=== PATIENT | male | born 1950 | race Caucasian/White ===

== ENCOUNTER 2016-05-26 15:06 | Emergency (ER) | payer OTHER, BC ==
[~2016-05-26] VITALS: Ht 177.8 cm; Wt 75.3 kg
--- NOTE | 2016-05-26 15:07 | NUR ---
Patient to ER bed 6 to gown for evaluation. Side rails up. Report given to Jordan RO.
[2016-05-26 15:08] VITALS: BP 136/69; PULSE 83; RESP 16; TEMP 97.2; O2SAT 96
--- NOTE | 2016-05-26 15:12 | NUR ---
ER MD Rao at bedside evaluating the patient
[2016-05-26] MEDS ORDERED: LIDOCAINE 1% 10 MG/ML, 20 ML MDV INJ ONE (15:15)
[2016-05-26] MEDS ORDERED: DIPH-TET-PERTUS Vaccine 0.5 ML VIAL (ADACEL) I.M. ONE (15:15)
--- NOTE | 2016-05-26 15:15 | NUR ---
Pt bib family c/o LAC to back of head s/p mech fal w/o syncope. pt h/o parkinson's which appears moderate. pt unable to sit still, pt shuffling from side to side.
--- NOTE | 2016-05-26 15:30 | NUR ---
pt to receive medication to aid w/procedure.
[2016-05-26] MEDS ORDERED: BACITRACIN 1 GM OINT TP ONE (15:45)
[2016-05-26] MEDS ORDERED: LORazepam 1 MG TABLET PO ONE (15:45)
--- NOTE | 2016-05-26 15:50 | NUR ---
Patient has a 5 cm laceration to posterior head. Renetta MOLDED GRID AND PARTS INSPECTOR applied lelia using sterile technique. Edges well approximated. Site cleansed with NS. Open to air. No bleeding noted. Pt tolerated well.
--- NOTE | 2016-05-26 16:04 | NUR ---
Patient given written and verbal discharge instructions and verbalizes understanding. ER MD discussed with patient the results and treatment provided. Given copies of tests performed in ER. Patient in stable condition. ID arm band removed. Patient educated on wound care and to follow up with PMD. Pain Scale 0/10. Opportunity for questions provided and answered.
== END 2016-05-26 16:05 | disposition home or self-care (01) ==
LOC: SED 15:06
DX: S01.01XA Laceration without foreign body of scalp, initial encounter (principal); G20 Parkinson's disease; E11.9 Type 2 diabetes mellitus without complications; Z88.8 Allergy status to other drugs, medicaments and biological substances; Z86.73 Personal history of transient ischemic attack (TIA), and cerebral infarction without residual deficits; W22.8XXA Striking against or struck by other objects, initial encounter; Y93.89 Activity, other specified; Y99.8 Other external cause status; Y92.89 Other specified places as the place of occurrence of the external cause
CPT/HCPCS: 12002; 90471; 90715; 99283; J2001

== ENCOUNTER 2016-05-28 13:30 | Emergency (ER) | payer OTHER, BC ==
[~2016-05-28] VITALS: Ht 177.8 cm; Wt 75.3 kg
[2016-05-28 13:38] VITALS: BP 108/55; PULSE 78; RESP 16; TEMP 97.2; O2SAT 97
--- NOTE | 2016-05-28 13:42 | NUR ---
Patient triaged and placed in waiting room. VSS and patient appears in no acute distress at this time. Accompanied by , awaiting available bed, and MD notified of need for MSE.
--- NOTE | 2016-05-28 14:49 | NUR ---
Patient to ER h1 to gown for evaluation. Side rails up. Report given to elías petty.
--- NOTE | 2016-05-28 15:00 | NUR ---
Kaylynn mora in [facility], [place] - 05/28/16 at 1505 by [facility] Ambulatory to hallway chair 1
--- NOTE | 2016-05-28 15:02 | NUR ---
REPORT GIVEN TO BEAU
--- NOTE | 2016-05-28 15:04 | NUR ---
Dr. Jernigan evaluating pt in [facility]
--- NOTE | 2016-05-28 15:05 | NUR ---
Patient returning to ER for laceration with lelia site evaluation. A few days ago patient had a mechanical fall, had laceration and got lelia. Site clean, no signs of infection.
[2016-05-28 15:20] VITALS: BP 114/63; PULSE 80; RESP 16; TEMP 97.7; O2SAT 97
--- NOTE | 2016-05-28 15:20 | NUR ---
Patient given written and verbal discharge instructions and verbalizes understanding. ER MD Jernigan discussed with patient the results and treatment provided. Patient in stable condition. ID arm band removed. Patient educated on pain management and to follow up with PMD. Pain Scale 0/10. Opportunity for questions provided and answered.
== END 2016-05-28 15:20 | disposition home or self-care (01) ==
LOC: SED 13:30
DX: S01.91XD Laceration without foreign body of unspecified part of head, subsequent encounter (principal); X58.XXXD Exposure to other specified factors, subsequent encounter; Y92.89 Other specified places as the place of occurrence of the external cause; Y99.8 Other external cause status
CPT/HCPCS: 99281

== ENCOUNTER 2016-06-05 20:04 | Emergency (ER) | payer OTHER, BC ==
[~2016-06-05] VITALS: Ht 175.3 cm; Wt 75.3 kg
[2016-06-05 20:05] VITALS: BP_SYST 145
[2016-06-05] MEDS ORDERED: LIDOCAINE 1% 10 MG/ML, 20 ML MDV INJ ONE (20:30)
[2016-06-05] MEDS ORDERED: traMADol HCL HCL 50 MG TABLET (ULTRAM) PO ONE (21:00)
== END 2016-06-05 21:00 | disposition home or self-care (01) ==
LOC: SED 20:04
DX: S01.01XA Laceration without foreign body of scalp, initial encounter (principal); I10 Essential (primary) hypertension; E11.9 Type 2 diabetes mellitus without complications; G20 Parkinson's disease; Z88.8 Allergy status to other drugs, medicaments and biological substances; Z86.73 Personal history of transient ischemic attack (TIA), and cerebral infarction without residual deficits; Z85.46 Personal history of malignant neoplasm of prostate; W18.30XA Fall on same level, unspecified, initial encounter; Y93.01 Activity, walking, marching and hiking; Y99.8 Other external cause status; Y92.003 Bedroom of unspecified non-institutional (private) residence as the place of occurrence of the external cause
CPT/HCPCS: 12002; 99283; J2001

== ENCOUNTER 2016-06-12 14:01 | Emergency (ER) | payer OTHER, BC ==
[~2016-06-12] VITALS: Ht 175.3 cm; Wt 75.7 kg
[2016-06-12 14:16] VITALS: BP_SYST 103
--- NOTE | 2016-06-12 14:22 | NUR ---
Dr. Kennedy evaluating pt in triage room.
--- NOTE | 2016-06-12 14:29 | NUR ---
3 lelia removed on top of head. Skin well approximated. No redness s/s of infection. Pt tolerated well.
--- NOTE | 2016-06-12 14:35 | NUR ---
Patient given written and verbal discharge instructions and verbalizes understanding. ER MD discussed with patient the results and treatment provided. Patient in stable condition. ID arm band removed. No Rx given. Patient educated on pain management and to follow up with PMD. Pain Scale 0/10. Opportunity for questions provided and answered.
[2016-06-12 14:36] VITALS: BP_SYST 103
== END 2016-06-12 14:35 | disposition home or self-care (01) ==
LOC: SED 14:01
DX: S01.01XD Laceration without foreign body of scalp, subsequent encounter (principal); E11.9 Type 2 diabetes mellitus without complications; I10 Essential (primary) hypertension; G20 Parkinson's disease; C61 Malignant neoplasm of prostate; Z86.79 Personal history of other diseases of the circulatory system; Z88.6 Allergy status to analgesic agent; X58.XXXD Exposure to other specified factors, subsequent encounter; Y92.89 Other specified places as the place of occurrence of the external cause; Y99.8 Other external cause status
CPT/HCPCS: 99281

== ENCOUNTER 2016-08-02 22:02 | Emergency (ER) | payer OTHER, BC ==
[~2016-08-02] VITALS: Ht 175.3 cm; Wt 75.7 kg
[2016-08-02 22:11] VITALS: BP 135/71; PULSE 84; RESP 18; TEMP 97.5; O2SAT 98
[2016-08-02] MEDS ORDERED: LIDOCAINE/EPI 2% 1:100000 20 ML VIAL INJ ONE (22:30)
[2016-08-02] MEDS ORDERED: BACITRACIN 1 GM OINT TP ONE ×2 (22:30→23:53)
[2016-08-02 23:24] VITALS: BP 139/67; PULSE 89; RESP 18; TEMP 97.5; O2SAT 98
== END 2016-08-02 23:24 | disposition home or self-care (01) ==
LOC: SED 22:02
DX: S01.01XA Laceration without foreign body of scalp, initial encounter (principal); E11.9 Type 2 diabetes mellitus without complications; I10 Essential (primary) hypertension; Z85.46 Personal history of malignant neoplasm of prostate; Z88.6 Allergy status to analgesic agent; W18.30XA Fall on same level, unspecified, initial encounter; Y93.89 Activity, other specified; Y92.092 Bedroom in other non-institutional residence as the place of occurrence of the external cause; Y99.9 Unspecified external cause status
CPT/HCPCS: 99283

== ENCOUNTER 2017-05-21 23:40 | Emergency (ER) | payer OTHER, BC ==
[~2017-05-21] VITALS: Ht 177.8 cm; Wt 77.1 kg
[2017-05-21 23:50] VITALS: BP_SYST 113
[2017-05-22 00:34] VITALS: BP_SYST 113
[2017-05-22] MEDS: LIDOCAINE 1% 10 MG/ML, 20 ML MDV IJ ONE (00:44)
[2017-05-22] MEDS: BACITRACIN 1 GM OINT TP ONE (00:45)
[2017-05-25] MEDS ORDERED: RASA0.5T PO (15:29)
[2017-05-25] MEDS ORDERED: RASA1TAB PO (15:29)
[2017-05-25] MEDS ORDERED: ASPI81TA2 PO (15:29)
[2017-05-25] MEDS ORDERED: TRIA1CAP53 PO (15:29)
[2017-05-25] MEDS ORDERED: AMAN100C16 PO (15:29)
[2017-05-25] MEDS ORDERED: TERA5CAP58 PO (15:29)
[2017-05-25] MEDS ORDERED: ALLO300T2 PO (15:29)
[2017-05-25] MEDS ORDERED: COM200 PO (15:29)
[2017-05-25] MEDS ORDERED: ESCI10TA PO (15:29)
[2017-05-25] MEDS ORDERED: CARB-61 PO (15:29)
[2017-05-28] MEDS ORDERED: AMOX-426 PO ×2 (11:49→15:13)
== END 2017-05-22 00:34 | disposition home or self-care (01) ==
LOC: SED 23:40
DX: S61.011A Laceration without foreign body of right thumb without damage to nail, initial encounter (principal); E11.9 Type 2 diabetes mellitus without complications; I10 Essential (primary) hypertension; G20 Parkinson's disease; Z85.46 Personal history of malignant neoplasm of prostate; Z86.73 Personal history of transient ischemic attack (TIA), and cerebral infarction without residual deficits; Z88.6 Allergy status to analgesic agent; W18.2XXA Fall in (into) shower or empty bathtub, initial encounter; Y93.E1 Activity, personal bathing and showering; Y92.091 Bathroom in other non-institutional residence as the place of occurrence of the external cause; Y99.8 Other external cause status
CPT/HCPCS: 12001; 99283; J2001

== ENCOUNTER 2018-04-19 14:06 | Outpatient (CLI) | payer OTHER, BC ==
[~2018-04-19 14:06] MED LIST: ALLO300T2 PO; AMAN100C16 PO; CARB-61 PO; COM200 PO; ESCI10TA PO; TERA5CAP58 PO; TRIA1CAP53 PO
== END 2018-04-19 21:15 | disposition home or self-care (01) ==
LOC: SCT 14:06
DX: G31.9 Degenerative disease of nervous system, unspecified (principal); I63.89 Other cerebral infarction
CPT/HCPCS: 70450-TC

== ENCOUNTER 2019-04-24 22:32 | Emergency (ER) | payer OTHER, BC ==
[~2019-04-24] VITALS: Ht 175.3 cm; Wt 75.7 kg
[~2019-04-24 22:32] MED LIST changes: +TERA5CAP4 PO; -TERA5CAP58 PO
--- NOTE | 2019-04-24 22:34 | NUR ---
Placed in room 6 . Placed on automation specialist, blood pressure machine and pulse oximeter. To gown for exam. Side rails up. Report given to JIA Barreto.
--- NOTE | 2019-04-24 22:34 | NUR ---
Pt from home, states that he tripped over his walker and fell onto his face then started bleeding. Pt AAOx4 with hx of Parkinson's Dz. Pt Denies LOC, -N/V. Gauze wrap to head per EMS with bright red blood to forehead area. ~1 cm lac to bridge of nose, no bleeding noted. Upon removal of gauze wrap, a 2 cm lac noted to left brow. Pressure dsg applied.
[2019-04-24 22:35] VITALS: BP_SYST 140
[2019-04-24] MEDS ORDERED: LIDOCAINE/EPI 1% 1:100000 20 ML VIAL INJ ONE (23:45)
[2019-04-24] MEDS ORDERED: MIDAZOLAM HCL 5 MG/5 ML VIAL IVP ONE (23:45)
[2019-04-24] MEDS ORDERED: BACITRACIN 1 GM OINT TP ONE (23:45)
--- NOTE | 2019-04-25 00:30 | NUR ---
Dr. Esparza at bedside to place sutures.
--- NOTE | 2019-04-25 00:50 | NUR ---
Patient has a 2 cm laceration to left forehead. Dr. Esparza applied sutures using sterile technique. Edges well approximated. Site cleansed with iodine. Dressing of non-adherent applied to site. No bleeding noted. Pt tolerated well.
[2019-04-25 01:11] VITALS: BP_SYST 146
--- NOTE | 2019-04-25 01:11 | NUR ---
Patient given written and verbal discharge instructions and verbalizes understanding. ER MD discussed with patient the results and treatment provided. Patient in stable condition. ID arm band removed. No Rx given. Patient educated on pain management and to follow up with PMD. Pain Scale 0. Opportunity for questions provided and answered. Medication side effect fact sheet provided.
== END 2019-04-25 01:11 | disposition home or self-care (01) ==
LOC: SED 22:32
DX: S01.112A Laceration without foreign body of left eyelid and periocular area, initial encounter (principal); S01.21XA Laceration without foreign body of nose, initial encounter; S50.812A Abrasion of left forearm, initial encounter; I10 Essential (primary) hypertension; E11.9 Type 2 diabetes mellitus without complications; Z88.8 Allergy status to other drugs, medicaments and biological substances; Z79.899 Other long term (current) drug therapy; W01.198A Fall on same level from slipping, tripping and stumbling with subsequent striking against other object, initial encounter; Y93.89 Activity, other specified; Y92.89 Other specified places as the place of occurrence of the external cause; Y99.8 Other external cause status
CPT/HCPCS: 99284

== ENCOUNTER 2019-06-08 20:28 | Emergency (ER) | payer OTHER, BC ==
[~2019-06-08] VITALS: Ht 172.7 cm; Wt 75.7 kg
[2019-06-08 20:28] VITALS: BP_SYST 146
[2019-06-08 21:03] LABS: BASOPHILS # (AUTO) 0.1 K/uL (0.0-0.2); EOSINOPHILS # (AUTO) 0.1 K/uL (0.0-0.4); EOSINOPHILS % (AUTO) 0.9 % (0.0-4.0); HEMATOCRIT 41.4 % (36-54); HEMOGLOBIN 13.6 g/dL (14.0-18.0); LYMPHOCYTES % (AUTO) 11.6 % (20.5-51.5); MEAN CORPUSCULAR HEMOGLOBIN 33 pg (27-31); MEAN CORPUSCULAR HGB CONC 33 % (32-36); MEAN CORPUSCULAR VOLUME 100 fL (79.0-98.0); MONOCYTES # (AUTO) 0.5 K/uL (0.0-1.0); MONOCYTES % (AUTO) 5.3 % (1.7-9.3); NEUTROPHILS # (AUTO) 7.2 K/uL (1.8-7.7); NEUTROPHILS % (AUTO) 81.2 % (40.0-70.0); PLATELET COUNT (AUTO) 195 K/uL (130-430); RED BLOOD CELL COUNT(AUTO) 4.14 MIL/uL (4.2-6.2); RED CELL DISTRIBUTION WIDTH 14.7 % (9.0-15.0); WHITE BLOOD COUNT (AUTO) 8.8 K/uL (4.8-10.8)
[2019-06-08 21:22] LABS: ALBUMIN 3.3 g/dL (3.4-4.8); CALCIUM 8.5 mg/dL (8.4-11.0); CREATININE 0.9 mg/dL (0.55-1.30); POTASSIUM 3.5 mmol/L (3.5-5.1); TOTAL BILIRUBIN 0.8 mg/dL (0.0-1.0)
[2019-06-08] MEDS ORDERED: MORPHINE 2 MG/ML INJ. SYRINGE IVP ONE (21:30)
[2019-06-08 23:54] VITALS: BP_SYST 166
== END 2019-06-08 23:42 | disposition home or self-care (01) ==
LOC: SED 20:28
DX: S42.441A Displaced fracture (avulsion) of medial epicondyle of right humerus, initial encounter for closed fracture (principal); S00.83XA Contusion of other part of head, initial encounter; E11.9 Type 2 diabetes mellitus without complications; I10 Essential (primary) hypertension; G20 Parkinson's disease; Z86.79 Personal history of other diseases of the circulatory system; Z85.46 Personal history of malignant neoplasm of prostate; Z79.899 Other long term (current) drug therapy; Z88.6 Allergy status to analgesic agent; W18.09XA Striking against other object with subsequent fall, initial encounter; Y93.89 Activity, other specified; Y92.89 Other specified places as the place of occurrence of the external cause; Y99.8 Other external cause status
CPT/HCPCS: 36415; 70450; 72125; 73030; 73060; 80053; 82550; 85025; 93005; 96374; 99285; G0482; J2270

== ENCOUNTER 2019-09-06 20:08 | Emergency (ER) | payer OTHER, BC ==
[~2019-09-06] VITALS: Ht 154.9 cm; Wt 74.8 kg
[2019-09-06 20:10] VITALS: BP_SYST 163
--- NOTE | 2019-09-06 20:15 | NUR ---
Placed in room 5 . Placed on campus monitor, blood pressure machine and pulse oximeter. To gown for exam. Side rails up. Report given to ROSALEE RO.
[2019-09-06] MEDS ORDERED: ACETAMINOPHEN 500 MG TABLET PO ONE (20:30)
--- NOTE | 2019-09-06 20:30 | NUR ---
RECEIVED AND IN ROOM , CALM, ALERT, TREMORS, REQUESTING MEDS FOR PARKINSONS. BIB EMT FROM HOME BLS FOR FALL. UNKNOWN CASE, DENIES HEAD INJURY. PT STATES HE FALLS "ALMOST DAILY."
[2019-09-06 21:17] LABS: BASOPHILS # (AUTO) 0.1 K/uL (0.0-0.2); BASOPHILS % (AUTO) 0.9 % (0.0-2.0); EOSINOPHILS # (AUTO) 0.1 K/uL (0.0-0.4); EOSINOPHILS % (AUTO) 1.2 % (0.0-4.0); HEMATOCRIT 43.9 % (36-54); HEMOGLOBIN 14.4 g/dL (14.0-18.0); LYMPHOCYTES # (AUTO) 1.3 K/uL (1.0-5.5); LYMPHOCYTES % (AUTO) 17.4 % (20.5-51.5); MEAN CORPUSCULAR HEMOGLOBIN 33 pg (27-31); MEAN CORPUSCULAR HGB CONC 33 % (32-36); MEAN CORPUSCULAR VOLUME 99 fL (79.0-98.0); MONOCYTES # (AUTO) 0.5 K/uL (0.0-1.0); MONOCYTES % (AUTO) 6.7 % (1.7-9.3); NEUTROPHILS # (AUTO) 5.5 K/uL (1.8-7.7); NEUTROPHILS % (AUTO) 73.8 % (40.0-70.0); PLATELET COUNT (AUTO) 193 K/uL (130-430); RED BLOOD CELL COUNT(AUTO) 4.43 MIL/uL (4.2-6.2); RED CELL DISTRIBUTION WIDTH 14.5 % (9.0-15.0); WHITE BLOOD COUNT (AUTO) 7.4 K/uL (4.8-10.8)
--- NOTE | 2019-09-06 21:20 | NUR ---
CT HEAD COMPLETED
[2019-09-06 21:25] LABS: ANION GAP 5 (5-15); CALCIUM 8.4 mg/dL (8.4-11.0); CHLORIDE 101 mmol/L (98-107); CREATININE 0.85 mg/dL (0.55-1.30); GLUCOSE 109 mg/dL (70-99); POTASSIUM 3.3 mmol/L (3.5-5.1); SODIUM SERUM 139 mmol/L (136-145); UREA NITROGEN, BLOOD 18 mg/dL (8-21)
[2019-09-06 21:30] LABS: GFR AFRICAN AMERICAN 115 mL/min (>90)
[2019-09-06 21:31] LABS: BILIRUBIN,URINE NEGATIVE (NEGATIVE); BLOOD, URINE NEGATIVE (NEGATIVE); CLARITY/URINE SL CLOUDY (CLEAR); GLUCOSE,URINE NEGATIVE (NEGATIVE); KETONES,URINE NEGATIVE (NEGATIVE); LEUKOCYTE ESTERASE ,URINE 1+ (NEGATIVE); NITRITE, URINE NEGATIVE (NEGATIVE); PROTEIN URINE NEGATIVE (NEGATIVE); UROBILINOGEN,URINE 0.2 (0.2-1.0)
[2019-09-06 21:36] LABS: ALANINE AMINOTRANSFERASE 10 U/L (12-78); ALBUMIN 3.4 g/dL (3.4-4.8); ALCOHOL, BLOOD < 3 mg/dL (<10); ASPARTATE AMINOTRANSFERASE 18 U/L (10-37); TOTAL BILIRUBIN 0.9 mg/dL (0.0-1.0)
--- NOTE | 2019-09-06 21:45 | NUR ---
CALM, ALERT RESP UNLABORED, NO TREMORS OBSERVED, COMMUNICATES CLEARLY IN FULL COMPLETE SENTENCES. SKIN WARM AND DRY
[2019-09-06 21:54] LABS: COLOR,URINE AMBER (YELLOW)
[2019-09-06 22:21] LABS: BACTERIA,URINE MANY /HPF (None Seen); MUCUS,URINE 1+ /LPF (None Seen); RBC,URINE 0-3 /HPF (0-3); WBC,URINE 20-50 /HPF (0-3)
--- NOTE | 2019-09-06 23:18 | NUR ---
SPOKE WITH /UPDATE PROVIDED. SHE WILL CALL BACK PT CALM, ALERT, EASILY AROUSED, RESP UNLABORED, CLEAR EMNTATION AND SPEECH
[2019-09-06 23:47] VITALS: BP_SYST 149
--- NOTE | 2019-09-06 23:47 | NUR ---
Patient given written and verbal discharge instructions and verbalizes understanding. ER MD discussed with patient the results and treatment provided. Patient in stable condition. ID arm band removed. Rx of Macrobid given. Patient educated on pain management and to follow up with PMD. Pain Scale 0/10. Opportunity for questions provided and answered. Medication side effect fact sheet provided.
[2019-09-07 00:07] LABS: BARBITURATE, URINE NEGATIVE (NEG <=200); BENZODIAZEPINE, URINE POSITIVE (NEG <=150); CANNABINOID, URINE NEGATIVE (NEG <=50); COCAINE, URINE NEGATIVE (NEG <=150); METHAMPHETAMINES SCREEN,URINE NEGATIVE (NEG <=500); OPIATE, URINE NEGATIVE (NEG <=100); PHENCYCLIDINE SCREEN,URINE NEGATIVE (NEG <=25); UR TRICYCLIC ANTIDEPRESSANTS NEGATIVE (NEG <=300); URINE AMPHETAMINE NEGATIVE (NEG <=500); URINE METHADONE NEGATIVE (NEG <=200); URINE OXYCODONE SCREEN NEGATIVE (NEG <=100); URINE PROPOXYPHENE SCREEN NEGATIVE (NEG <=300)
[2019-09-13] MEDS ORDERED: TRAM50TA2 PO ×2 (11:24→11:26)
== END 2019-09-07 03:34 | disposition home or self-care (01) ==
LOC: SED 20:08
DX: S06.0X1A Concussion with loss of consciousness of 30 minutes or less, initial encounter (principal); E11.9 Type 2 diabetes mellitus without complications; I10 Essential (primary) hypertension; G20 Parkinson's disease; Z86.79 Personal history of other diseases of the circulatory system; Z85.46 Personal history of malignant neoplasm of prostate; Z88.6 Allergy status to analgesic agent; Z79.899 Other long term (current) drug therapy; W18.39XA Other fall on same level, initial encounter; Y93.89 Activity, other specified; Y92.89 Other specified places as the place of occurrence of the external cause; Y99.8 Other external cause status
CPT/HCPCS: 36415; 70450; 72125; 80053; 80307; 81000; 84484; 85025; 85610; 85730; 87086; 93005; 99285; G0482

== ENCOUNTER 2019-09-16 19:14 | Emergency (ER) | payer OTHER, BC ==
[~2019-09-16] VITALS: Ht 175.3 cm; Wt 74.8 kg
[~2019-09-16 19:14] MED LIST changes: +TRAM50TA2 PO
--- NOTE | 2019-09-16 19:15 | NUR ---
Recieved report from Day shift CN pt in [facility] in the [facility].Care endorsed to Jessie RO
[2019-09-16 19:20] VITALS: BP_SYST 144
--- NOTE | 2019-09-16 19:57 | NUR ---
called for an update on patient. She will call back in a couple of hours.
--- NOTE | 2019-09-16 20:32 | NUR ---
PT BIB BLS FROM HOME AFTER A FALL. PT REPORTS FEELING DIZZY AND WEAK IN THE LEGS PRIOR TO FALL. PT STATES HE HIT THE RIGHT SIDE OF HIS HEAD AND IS IN PAIN. PT REPORTS HAVING PAIN ALSO IN HIS RIGHT SHOULDER AND RIGHT RIBS. EMS REPORTS INFORMED THEM THE RIBS HURT FROM A FALL TWO WEEKS AGO. PT REPORTS HAVING DIARRHEA FOR THE PAST 2 DAYS. PT REPORTS PAIN 7 OUT OF 10. PT STILL PLACED IN AMBULANCE GURNEY. WILL CONTINUE TO MONITOR.
--- NOTE | 2019-09-16 20:37 | NUR ---
ER Dr. CORREA at bedside examining patient.
--- NOTE | 2019-09-16 20:57 | NUR ---
CALLED FOR AN UPDATE ON PT.
--- NOTE | 2019-09-16 21:33 | NUR ---
PT IN AMBULANCE GURNEY, LAYING CALMLY. NO ACUTE SIGNS OF DISTRESS.
--- NOTE | 2019-09-16 22:09 | NUR ---
Patient transported to radiology via [facility], accompanied by
--- NOTE | 2019-09-16 22:24 | NUR ---
PT , KENNEDY CALLED FOR AN UPDATE.
--- NOTE | 2019-09-16 22:45 | NUR ---
Pt moved to ER bed 4.
[2019-09-16] MEDS ORDERED: DIPHENOXYLATE HCL/ATROP SULF 2.5 MG TAB PO ONE (23:00)
--- NOTE | 2019-09-16 23:33 | NUR ---
xray at bedside.
--- NOTE | 2019-09-16 23:55 | NUR ---
PT WIFES CALLED BACK FOR AN UPDATE.
--- NOTE | 2019-09-17 00:11 | NUR ---
CALLED TO COME STORAGE GARAGE ATTENDANT PATIENT.
--- NOTE | 2019-09-17 00:32 | NUR ---
Patient given written and verbal discharge instructions and verbalizes understanding. ER MD discussed with patient the results and treatment provided. Patient in stable condition. ID arm band removed. Rx of MINERAL OIL given. Patient educated on pain management and to follow up with PMD. Pain Scale 0/10. Opportunity for questions provided and answered. Medication side effect fact sheet provided.
[2019-09-17 00:33] VITALS: BP_SYST 163
== END 2019-09-17 00:33 | disposition home or self-care (01) ==
LOC: SED 19:14
DX: K59.00 Constipation, unspecified (principal); G20 Parkinson's disease; I10 Essential (primary) hypertension; E11.9 Type 2 diabetes mellitus without complications; Z86.79 Personal history of other diseases of the circulatory system; Z85.46 Personal history of malignant neoplasm of prostate; Z79.899 Other long term (current) drug therapy; Z88.6 Allergy status to analgesic agent
CPT/HCPCS: 74021; 99283

== ENCOUNTER 2020-02-13 20:29 | Emergency (ER) | payer OTHER, BC ==
[~2020-02-13] VITALS: Ht 175.3 cm; Wt 75.7 kg
[2020-02-13 20:35] VITALS: BP_SYST 134
[2020-02-13] MEDS: ACETAMINOPHEN 500 MG TABLET PO ONE (21:56)
[2020-02-13 22:30] VITALS: BP_SYST 134
== END 2020-02-13 22:30 | disposition home or self-care (01) ==
LOC: SED 20:29
DX: S59.812A Other specified injuries left forearm, initial encounter (principal); M25.562 Pain in left knee; I10 Essential (primary) hypertension; E11.9 Type 2 diabetes mellitus without complications; G20 Parkinson's disease; Z85.46 Personal history of malignant neoplasm of prostate; Z86.79 Personal history of other diseases of the circulatory system; Z79.899 Other long term (current) drug therapy; Z88.6 Allergy status to analgesic agent; W01.0XXA Fall on same level from slipping, tripping and stumbling without subsequent striking against object, initial encounter; Y93.89 Activity, other specified; Y92.091 Bathroom in other non-institutional residence as the place of occurrence of the external cause; Y99.8 Other external cause status
CPT/HCPCS: 73090; 73564; 99284

== ENCOUNTER 2020-04-11 23:05 | Emergency (ER) | payer OTHER, BC ==
[~2020-04-11] VITALS: Ht 175.3 cm; Wt 75.7 kg
[2020-04-11 23:05] VITALS: BP_SYST 173
[2020-04-12 00:32] LABS: RED CELL DISTRIBUTION WIDTH 14.1 % (9.0-15.0)
[2020-04-12 00:38] LABS: BASOPHILS % (AUTO) 0.6 % (0.0-2.0); EOSINOPHILS # (AUTO) 0.2 K/uL (0.0-0.4); EOSINOPHILS % (AUTO) 2.3 % (0.0-4.0); HEMATOCRIT 40.7 % (36-54); HEMOGLOBIN 13.7 g/dL (14.0-18.0); LYMPHOCYTES # (AUTO) 1.5 K/uL (1.0-5.5); LYMPHOCYTES % (AUTO) 20.4 % (20.5-51.5); MEAN CORPUSCULAR HEMOGLOBIN 33 pg (27-31); MEAN CORPUSCULAR HGB CONC 34 % (32-36); MEAN CORPUSCULAR VOLUME 99 fL (79.0-98.0); MONOCYTES # (AUTO) 0.6 K/uL (0.0-1.0); MONOCYTES % (AUTO) 7.6 % (1.7-9.3); NEUTROPHILS # (AUTO) 5.1 K/uL (1.8-7.7); NEUTROPHILS % (AUTO) 69.1 % (40.0-70.0); PLATELET COUNT (AUTO) 174 K/uL (130-430); RED BLOOD CELL COUNT(AUTO) 4.11 MIL/uL (4.2-6.2); WHITE BLOOD COUNT (AUTO) 7.4 K/uL (4.8-10.8)
[2020-04-12 00:39] LABS: CALCIUM 8.6 mg/dL (8.4-11.0); CREATININE 0.87 mg/dL (0.55-1.30); POTASSIUM 3.3 mmol/L (3.5-5.1)
[2020-04-12 00:44] LABS: ALBUMIN 3.2 g/dL (3.4-4.8)
[2020-04-12 02:08] LABS: BILIRUBIN,URINE NEGATIVE (NEGATIVE); BLOOD, URINE NEGATIVE (NEGATIVE); CLARITY/URINE CLEAR (CLEAR); COLOR,URINE YELLOW (YELLOW); GLUCOSE,URINE NEGATIVE (NEGATIVE); KETONES,URINE TRACE (NEGATIVE); LEUKOCYTE ESTERASE ,URINE NEGATIVE (NEGATIVE); NITRITE, URINE NEGATIVE (NEGATIVE); PROTEIN URINE NEGATIVE (NEGATIVE); UROBILINOGEN,URINE 0.2 (0.2-1.0)
[2020-04-12] MEDS ORDERED: POTASSIUM CHLORIDE 20 MEQ TAB.PRT.SR ONE (02:54)
[2020-04-12] MEDS ORDERED: POTASSIUM CHLORIDE 20 MEQ TAB.PRT.SR PO ONE (03:00)
[2020-04-12 03:09] VITALS: BP_SYST 152
== END 2020-04-12 03:09 | disposition home or self-care (01) ==
LOC: SED 23:05
DX: S53.492A Other sprain of left elbow, initial encounter (principal); M25.522 Pain in left elbow; E87.6 Hypokalemia; I10 Essential (primary) hypertension; E11.9 Type 2 diabetes mellitus without complications; Z79.899 Other long term (current) drug therapy; Z88.6 Allergy status to analgesic agent; W18.39XA Other fall on same level, initial encounter; Y93.89 Activity, other specified; Y92.89 Other specified places as the place of occurrence of the external cause; Y99.8 Other external cause status
CPT/HCPCS: 36415; 70450-TC; 76376; 80053; 81003; 85025; 99284

== ENCOUNTER 2020-07-15 15:26 | Emergency (ER) | payer OTHER, BC ==
[~2020-07-15] VITALS: Ht 177.8 cm; Wt 79.4 kg
[2020-07-15 15:42] VITALS: BP_SYST 157
[2020-07-15] MEDS ORDERED: BACLOFEN 10 MG TABLET PO ONE (16:00)
[2020-07-15] MEDS ORDERED: ACETAMINOPHEN 500 MG TABLET PO ONE (16:00)
[2020-07-15 17:35] VITALS: BP_SYST 149
== END 2020-07-15 17:35 | disposition home or self-care (01) ==
LOC: SED 15:26
DX: S50.02XA Contusion of left elbow, initial encounter (principal); G20 Parkinson's disease; I10 Essential (primary) hypertension; E11.9 Type 2 diabetes mellitus without complications; Z88.8 Allergy status to other drugs, medicaments and biological substances; Z79.899 Other long term (current) drug therapy; W18.39XA Other fall on same level, initial encounter; Y93.89 Activity, other specified; Y92.89 Other specified places as the place of occurrence of the external cause; Y99.8 Other external cause status
CPT/HCPCS: 99283

== ENCOUNTER 2020-11-03 14:04 | Inpatient (IN) | payer OTHER, BC, SELFPAY ==
[~2020-11-03] VITALS: Ht 175.3 cm; Wt 75.0 kg
[~2020-11-03 14:04] MED LIST changes: +DOXY100C2 PO
[2020-11-03 14:26] VITALS: BP_SYST 140
[2020-11-03 14:43] LABS: BASOPHILS # (AUTO) 0.1 K/uL (0.0-0.2); EOSINOPHILS # (AUTO) 0.1 K/uL (0.0-0.4); WHITE BLOOD COUNT (AUTO) 6.6 K/uL (4.8-10.8)
[2020-11-03 14:50] LABS: BASOPHILS % (AUTO) 0.8 % (0.0-2.0); EOSINOPHILS % (AUTO) 1.5 % (0.0-4.0); HEMATOCRIT 42.6 % (36-54); HEMOGLOBIN 14.7 g/dL (14.0-18.0); LYMPHOCYTES # (AUTO) 1.2 K/uL (1.0-5.5); LYMPHOCYTES % (AUTO) 18.2 % (20.5-51.5); MEAN CORPUSCULAR HEMOGLOBIN 34 pg (27-31); MEAN CORPUSCULAR HGB CONC 35 % (32-36); MEAN CORPUSCULAR VOLUME 97 fL (79.0-98.0); MONOCYTES # (AUTO) 0.5 K/uL (0.0-1.0); MONOCYTES % (AUTO) 7.3 % (1.7-9.3); NEUTROPHILS # (AUTO) 4.8 K/uL (1.8-7.7); NEUTROPHILS % (AUTO) 72.2 % (40.0-70.0); PLATELET COUNT (AUTO) 191 K/uL (130-430); RED BLOOD CELL COUNT(AUTO) 4.39 MIL/uL (4.2-6.2); RED CELL DISTRIBUTION WIDTH 16.1 % (9.0-15.0)
[2020-11-03 14:59] LABS: ANION GAP 6 (5-15); CHLORIDE 104 mmol/L (98-107); CREATININE 0.83 mg/dL (0.55-1.30); GLUCOSE 105 mg/dL (70-99); POTASSIUM 3.7 mmol/L (3.5-5.1); SODIUM SERUM 143 mmol/L (136-145); UREA NITROGEN, BLOOD 16 mg/dL (8-21)
[2020-11-03 15:07] LABS: ALANINE AMINOTRANSFERASE 15 U/L (12-78); ALBUMIN 3.4 g/dL (3.4-4.8); ASPARTATE AMINOTRANSFERASE 10 U/L (10-37); BILIRUBIN,DIRECT 0.3 mg/dL (0.0-0.3); LIPASE 29 U/L (73-393); TOTAL BILIRUBIN 1.1 mg/dL (0.0-1.0)
[2020-11-03] MEDS ORDERED: RASA1TAB PO (17:19)
[2020-11-03] MEDS ORDERED: LORA-258 PO (17:19)
[2020-11-03] MEDS ORDERED: PANT20TA2 PO (17:19)
[2020-11-03] MEDS ORDERED: ONDANSETRON HCL 4 MG/2 ML VIAL IVP PRN (18:45)
[2020-11-03] MEDS ORDERED: ACETAMINOPHEN 325 MG TABLET PO PRN (18:45)
[2020-11-03] MEDS ORDERED: TEMAZEPAM 15 MG CAPSULE PO PRN (19:45)
[2020-11-03] MEDS ORDERED: DEXTROSE 50% JECT 50 ML DISP.SYRIN IVP PRN (20:00)
[2020-11-03] MEDS ORDERED: INSULIN REGULAR, HUMAN 100 UNITS/ML, 10 ML VIAL (humuLIN R) SUBCUT PRN (20:00)
[2020-11-03 20:19] VITALS: BP_SYST 161
[2020-11-03] MEDS: COMTAN 200 MG TAB PO SCH (21:00)
[2020-11-03 21:52] LABS: BILIRUBIN,URINE NEGATIVE (NEGATIVE); BLOOD, URINE NEGATIVE (NEGATIVE); CLARITY/URINE CLEAR (CLEAR); COLOR,URINE YELLOW (YELLOW); GLUCOSE,URINE NEGATIVE (NEGATIVE); KETONES,URINE NEGATIVE (NEGATIVE); LEUKOCYTE ESTERASE ,URINE NEGATIVE (NEGATIVE); NITRITE, URINE NEGATIVE (NEGATIVE); PROTEIN URINE NEGATIVE (NEGATIVE); UROBILINOGEN,URINE 0.2 (0.2-1.0)
[2020-11-03] MEDS: cloNIDine HCL 0.1 MG TABLET PO PRN (22:09)
[2020-11-03] MEDS: CARBIDOPA/LEVODOPA 25/100 MG TABLET PO SCH (22:09)
[2020-11-03] MEDS: LORazepam 1 MG TABLET PO SCH (22:09)
[2020-11-03 22:39] VITALS: BP_SYST 149
[2020-11-04 00:41] VITALS: BP_SYST 145
[2020-11-04 06:19] LABS: ANION GAP 5 (5-15); CALCIUM 8.8 mg/dL (8.4-11.0); CHLORIDE 106 mmol/L (98-107); FREE T4 (FREE THYROXINE) 1.2 ng/dl (0.8-1.5); GLUCOSE 93 mg/dL (70-99); POTASSIUM 3.3 mmol/L (3.5-5.1); SODIUM SERUM 143 mmol/L (136-145); THYROID STIMULATING HORMONE 2.06 uIu/mL (0.36-3.74); UREA NITROGEN, BLOOD 14 mg/dL (8-21)
[2020-11-04 07:43] LABS: BASOPHILS # (AUTO) 0.1 K/uL (0.0-0.2); BASOPHILS % (AUTO) 0.8 % (0.0-2.0); EOSINOPHILS # (AUTO) 0.2 K/uL (0.0-0.4); EOSINOPHILS % (AUTO) 2.3 % (0.0-4.0); HEMATOCRIT 38.4 % (36-54); HEMOGLOBIN 12.8 g/dL (14.0-18.0); LYMPHOCYTES # (AUTO) 1.8 K/uL (1.0-5.5); LYMPHOCYTES % (AUTO) 25.9 % (20.5-51.5); MEAN CORPUSCULAR HEMOGLOBIN 33 pg (27-31); MEAN CORPUSCULAR HGB CONC 33 % (32-36); MEAN CORPUSCULAR VOLUME 98 fL (79.0-98.0); MONOCYTES # (AUTO) 0.6 K/uL (0.0-1.0); MONOCYTES % (AUTO) 8.4 % (1.7-9.3); NEUTROPHILS # (AUTO) 4.4 K/uL (1.8-7.7); NEUTROPHILS % (AUTO) 62.6 % (40.0-70.0); PLATELET COUNT (AUTO) 169 K/uL (130-430); RED BLOOD CELL COUNT(AUTO) 3.94 MIL/uL (4.2-6.2); RED CELL DISTRIBUTION WIDTH 16.1 % (9.0-15.0); WHITE BLOOD COUNT (AUTO) 7.1 K/uL (4.8-10.8)
[2020-11-04 08:10] VITALS: BP_SYST 156
[2020-11-04] MEDS ORDERED: NON-FORMULARY MEDICATION (Pantoprazole (Protonix) 40 MG) PO SCH (09:00)
[2020-11-04] MEDS ORDERED: ESCITALOPRAM OXALATE 10 MG TABLET PO SCH (09:00)
[2020-11-04] MEDS ORDERED: RASAGILINE MESYLATE 1 MG PO SCH (09:00)
[2020-11-04] MEDS: ALLOPURINOL 300 MG TABLET (ZYLOPRIM) PO SCH (09:23)
[2020-11-04] MEDS: CARBIDOPA/LEVODOPA 25/100 MG TABLET PO SCH ×3 (09:23→20:35)
[2020-11-04] MEDS: CITALOPRAM HYDROBROMIDE 20 MG TABLET PO SCH (09:23)
[2020-11-04] MEDS: PANTOPRAZOLE SODIUM 40 MG TAB PO SCH (09:23)
[2020-11-04] MEDS: LORazepam 1 MG TABLET PO SCH ×2 (09:24→20:52)
[2020-11-04] MEDS: COMTAN 200 MG TAB PO SCH ×3 (09:30→20:36)
[2020-11-04] MEDS: TRIAMTERENE/HYDROCHLOROTHIAZID 1 CAP CAPSULE (DYAZIDE37.5/25) PO SCH (09:30)
[2020-11-04 09:36] LABS: CHOLESTEROL 139 mg/dL (<200); HDL CHOLESTEROL 47 mg/dL (>45); LDL CHOLESTEROL 97 mg/dL (<100); TRIGLYCERIDES 44 mg/dL (30-150)
[2020-11-04] MEDS ORDERED: POTASSIUM CHLORIDE 20 MEQ TAB.PRT.SR PO ONE (11:30)
[2020-11-04 12:00] VITALS: BP_SYST 128
[2020-11-04 16:00] VITALS: BP_SYST 98
[2020-11-04 20:15] VITALS: BP_SYST 131
[2020-11-05 01:24] VITALS: BP_SYST 177
[2020-11-05 07:30] VITALS: BP_SYST 160
[2020-11-05] MEDS: CITALOPRAM HYDROBROMIDE 20 MG TABLET PO SCH (08:51)
[2020-11-05] MEDS: COMTAN 200 MG TAB PO SCH ×2 (08:51→16:39)
[2020-11-05] MEDS: ALLOPURINOL 300 MG TABLET (ZYLOPRIM) PO SCH (08:51)
[2020-11-05] MEDS: CARBIDOPA/LEVODOPA 25/100 MG TABLET PO SCH ×2 (08:51→16:31)
[2020-11-05] MEDS: PANTOPRAZOLE SODIUM 40 MG TAB PO SCH (08:51)
[2020-11-05] MEDS: LORazepam 1 MG TABLET PO SCH (08:52)
[2020-11-05] MEDS ORDERED: POTASSIUM CHLORIDE 20 MEQ TAB.PRT.SR PO SCH (09:00)
[2020-11-05 12:02] VITALS: BP_SYST 172
[2020-11-05] MEDS: cloNIDine HCL 0.1 MG TABLET PO PRN (12:11)
[2020-11-05] MEDS: TRIAMTERENE/HYDROCHLOROTHIAZID 1 CAP CAPSULE (DYAZIDE37.5/25) PO SCH (12:28)
[2020-11-05 12:49] LABS: BASOPHILS % (AUTO) 0.8 % (0.0-2.0); EOSINOPHILS # (AUTO) 0.1 K/uL (0.0-0.4); EOSINOPHILS % (AUTO) 1.4 % (0.0-4.0); HEMATOCRIT 41.6 % (36-54); HEMOGLOBIN 14.1 g/dL (14.0-18.0); LYMPHOCYTES % (AUTO) 15.1 % (20.5-51.5); MEAN CORPUSCULAR HEMOGLOBIN 33 pg (27-31); MEAN CORPUSCULAR HGB CONC 34 % (32-36); MEAN CORPUSCULAR VOLUME 97 fL (79.0-98.0); MONOCYTES # (AUTO) 0.4 K/uL (0.0-1.0); MONOCYTES % (AUTO) 7.1 % (1.7-9.3); NEUTROPHILS # (AUTO) 4.8 K/uL (1.8-7.7); NEUTROPHILS % (AUTO) 75.6 % (40.0-70.0); PLATELET COUNT (AUTO) 179 K/uL (130-430); RED CELL DISTRIBUTION WIDTH 15.6 % (9.0-15.0); WHITE BLOOD COUNT (AUTO) 6.3 K/uL (4.8-10.8)
[2020-11-05 13:01] LABS: ANION GAP 6 (5-15); CALCIUM 8.7 mg/dL (8.4-11.0); CHLORIDE 106 mmol/L (98-107); CREATININE 0.86 mg/dL (0.55-1.30); GLUCOSE 108 mg/dL (70-99); POTASSIUM 3.7 mmol/L (3.5-5.1); SODIUM SERUM 141 mmol/L (136-145); UREA NITROGEN, BLOOD 17 mg/dL (8-21)
[2020-11-05 13:22] VITALS: BP_SYST 131; BP_SYST 134; BP_SYST 92
[2020-11-05] MEDS ORDERED: BISACODYL 5 MG TABLET.DR (DULCOLAX) PO ONE (13:30)
[2020-11-05] MEDS ORDERED: DOCUSATE SODIUM 100 MG CAPSULE PO ONE (13:30)
[2020-11-05] MEDS ORDERED: BISACODYL 10 MG/SUPPOSITORY RC PRN (13:30)
[2020-11-05 14:10] VITALS: BP_SYST 134
== END 2020-11-05 17:55 | disposition home health service (06) | DRG 312 ==
LOC: SED 14:04 → STU 18:07
PROVIDERS: ADMIT Internal Medicine; ATTEND Internal Medicine
PROC: 4A10X4Z Monitoring of Central Nervous Electrical Activity, External Approach (ICD-10-PCS; principal; 2020-11-03)
DX: I95.1 Orthostatic hypotension (principal); I69.354 Hemiplegia and hemiparesis following cerebral infarction affecting left non-dominant side; I10 Essential (primary) hypertension; M10.9 Gout, unspecified; K21.9 Gastro-esophageal reflux disease without esophagitis; F41.9 Anxiety disorder, unspecified; G20 Parkinson's disease; Z20.822 Contact with and (suspected) exposure to COVID-19; F02.80 Dementia in other diseases classified elsewhere, unspecified severity, without behavioral disturbance, psychotic disturbance, mood disturbance, and anxiety; F32.9 Major depressive disorder, single episode, unspecified; E11.8 Type 2 diabetes mellitus with unspecified complications; Z88.8 Allergy status to other drugs, medicaments and biological substances; Z85.46 Personal history of malignant neoplasm of prostate; Z99.3 Dependence on wheelchair
CPT/HCPCS: 36415; 70450-TC; 71045; 72125-TC; 72170-TC; 76376; 80048; 80061; 80076; 81003; 82962; 83036; 83690; 83880; 84439; 84443; 84484; 85025; 93005; 93306; 93880; 95816; 97116-GP; 97530-GP; 99285; G0378

== ENCOUNTER 2020-12-24 01:46 | Emergency (ER) | payer OTHER, BC ==
[~2020-12-24] VITALS: Ht 175.3 cm; Wt 74.8 kg
[~2020-12-24 01:46] MED LIST changes: -COM200 PO; -DOXY100C2 PO; +ENTA200T30 PO; +LORA-258 PO; +PANT20TA2 PO; +RASA1TAB PO; -TERA5CAP4 PO; -TRAM50TA2 PO; -TRIA1CAP53 PO
--- NOTE | 2020-12-24 01:46 | NUR ---
Patient to ER bed 3 to gown for evaluation. Side rails up. Report given to NICK RO.
[2020-12-24 02:00] VITALS: BP_SYST 154
--- NOTE | 2020-12-24 02:06 | NUR ---
pt bib yudelka ambualnce for a fall in the shower today at 0100. pt has a hx of parkinson and felt his knees buckle in the bathroom and fell and hit his head on the shower rail. has a 1 in ch lac to top of head. pt is from home and lives with his . states 5/10 pain to top of head. a&ox4. no other complaints at this time
[2020-12-24] MEDS: LIDOCAINE/EPI 2% 1:100000 20 ML VIAL INJ ONE (02:15)
--- NOTE | 2020-12-24 07:15 | NUR ---
Report recieved from Terry RO. Pt resting in [facility] breathing is even and unlabored. Vital signs holding.
--- NOTE | 2020-12-24 07:26 | NUR ---
Pt given breakfast tray.
--- NOTE | 2020-12-24 08:35 | NUR ---
Called family for grape picker of pt. Awaiting grape picker.
[2020-12-24 08:40] VITALS: BP_SYST 141
--- NOTE | 2020-12-24 08:40 | NUR ---
Patient given written and verbal discharge instructions and verbalizes understanding. ER MD discussed with patient the results and treatment provided. Patient in stable condition. ID arm band removed.. Patient educated on pain management and to follow up with PMD. Pain Scale 0/10. Opportunity for questions provided and answered. Medication side effect fact sheet provided.
== END 2020-12-24 08:40 | disposition home or self-care (01) ==
LOC: SED 01:46
DX: S01.01XA Laceration without foreign body of scalp, initial encounter (principal); R26.89 Other abnormalities of gait and mobility; I10 Essential (primary) hypertension; E11.9 Type 2 diabetes mellitus without complications; Z88.8 Allergy status to other drugs, medicaments and biological substances; Z79.899 Other long term (current) drug therapy; W01.198A Fall on same level from slipping, tripping and stumbling with subsequent striking against other object, initial encounter; Y93.89 Activity, other specified; Y92.89 Other specified places as the place of occurrence of the external cause; Y99.8 Other external cause status
CPT/HCPCS: 70470-TC; 71045; 72125-TC; 76376; 99285

== ENCOUNTER 2021-02-08 22:41 | Emergency (ER) | payer OTHER, BC ==
[2021-02-08 22:41] VITALS: BP_SYST 156
--- NOTE | 2021-02-08 22:41 | NUR ---
Patient to ER bed 1 to gown for evaluation. Side rails up. Report given to self. 70 y/o male bib ems ambulance to Er w/ c/o lac to left eyebrow s/p slip and fall after losing his balance. Patient h/o parkinson disease which patient twist and twerks quite often. Introduced self to patient, positioned for comfort. bed to low position sr up, continue to monitor.
--- NOTE | 2021-02-08 23:48 | NUR ---
Site to left eyebrow cleansed with sterile water and betadine. Site measures approximately 1cm. dry dressing applied. Tetanus vaccination current.
[2021-02-09] MEDS ORDERED: LIDOCAINE/EPI 1% 1:100000 20 ML VIAL INJ ONE
[2021-02-09] MEDS ORDERED: BACITRACIN 1 GM OINT TP ONE
--- NOTE | 2021-02-09 01:30 | NUR ---
ER Dr. Esparza at bedside attending to patient wound, laceration kit at bedside.
--- NOTE | 2021-02-09 03:30 | NUR ---
Patient resting quietly. No acute distress noted. Vital signs within normal range.
--- NOTE | 2021-02-09 04:30 | NUR ---
Patient given written and verbal discharge instructions and verbalizes understanding. ER MD discussed with patient the results and treatment provided. Patient in stable condition. ID arm band removed. Patient educated on pain management and to follow up with PMD. Pain Scale . Opportunity for questions provided and answered. Medication side effect fact sheet provided. patient , Miriam, contacted via phone and given aci and wound care instructions. Ms Pineda verbalized understanding.
[2021-02-09 04:31] VITALS: BP_SYST 187
== END 2021-02-09 04:31 | disposition home or self-care (01) ==
LOC: SED 22:41
DX: S01.112A Laceration without foreign body of left eyelid and periocular area, initial encounter (principal); S01.01XA Laceration without foreign body of scalp, initial encounter; I10 Essential (primary) hypertension; E11.9 Type 2 diabetes mellitus without complications; W18.39XA Other fall on same level, initial encounter; Y93.89 Activity, other specified; Y92.89 Other specified places as the place of occurrence of the external cause; Y99.8 Other external cause status
CPT/HCPCS: 82962; 99283

== ENCOUNTER 2022-05-29 10:23 | Outpatient (CLI) | payer OTHER, BC ==
[~2022-05-29 10:23] MED LIST changes: -AMAN100C16 PO; +AMAN100C19 PO; +IBUP-2101 PO; +LORA-258 GT; -LORA-258 PO; -RASA1TAB PO; +TRIA1CAP88 PO
== END 2022-05-30 20:06 | disposition home or self-care (01) ==
LOC: SCT 10:23
PROVIDERS: ATTEND Family Medicine
DX: R91.1 Solitary pulmonary nodule (principal); I25.10 Atherosclerotic heart disease of native coronary artery without angina pectoris; J98.11 Atelectasis; R91.8 Other nonspecific abnormal finding of lung field; J98.4 Other disorders of lung
CPT/HCPCS: 71250-TC; 76376